=== PATIENT | male | born 1950 | race Two or more races ===

== ENCOUNTER 2016-04-05 06:45 | Emergency (ER) | payer OTHER ==
[2016-04-05] MEDS ORDERED: SODIUM CHLORIDE 1,000 ML IV ONE (07:10)
[2016-04-05 07:15] VITALS: TEMP 97.9; BMI 25.4
--- NOTE | 2016-04-05 07:47 | PDOC ---
History of Present Illness <Saulo Rosales - Last Filed: 04/05/16 09:54> - General History Source: Patient Exam Limitations: No Limitations - History of Present Illness Initial Comments: 04/05/16 07:52 The patient is a 65-year-old man, accompanied by , with a significant past medical history of hypertension, gastroesophageal reflux disease, chronic back pain, lumbar radiculopathy secondary to spondylolisthesis (recent laminectomy of L4-L5; L5-S1; and L5-S1 fusion on 03/23/2015) and depression who presents to the emergency department for further evaluation of left thigh pain. As per patient, he recently underwent a laminectomy that was performed by Dr. Linus Camacho at [facility] in [facility]. Patient states that prior surgery, he experienced chronic back pain that radiated down his left leg with associated weakness and numbness. He admits that post surgery, he experiences occasional intermittent back discomfort but reports improvement of his leg, as is ambulatory with a cane and is able to move his leg with great strength and without experiencing numbness or weakness. He reports having a normal post up appointment with Dr. Camacho, 5 days post surgery. However, three days ago, he started to experience atraumatic left lateral thigh pain that began as intermittent but now has remained constant. He reports that his pain is exacerbated with movements with a 10/10 in severity and despite compliance with Percocet, he reports no alleviation, thus presenting to the ER. He denies other bodily pain or injury. He denies chest pain, SOB, dizziness, lightheadedness, or palpitation. He denies fever, chills, cough, abdominal pain, nausea, vomiting, diarrhea, visual changes, neck pain, Allergies: None Known Past Surgical History: Neck surgery. Recent Laminectomy of L4-L5; L5-S1; and L5 -S1 fusion on 03/23/2015 Social History: No tobacco, ETOH and recreational drug use Surgeon: Dr. Linus Camacho <Lara Stapleton - Last Filed: 04/05/16 10:18> - General Chief Complaint: Pain, Acute Stated Complaint: PAIN Time Seen by Provider: 04/05/16 07:10 Past History - Past Medical History Anemia: No Asthma: No Cancer: No Cardiac Disorders: No CVA: No COPD: No CHF: No Dementia: No Diabetes: No GI Disorders: Yes (GERD, HH, DIVERTICULOSIS) Disorders: No HTN: Yes Hypercholesterolemia: No Liver Disease: No Seizures: No Thyroid Disease: No - Surgical History Appendectomy: No Cardiac Surgery: No Cholecystectomy: No Lung Surgery: No Neurologic Surgery: Yes (NECK SURGERY) Orthopedic Surgery: Yes (BACK SURGERY) - Immunization History Immunization Up to Date: Yes - Psycho/Social/Smoking Cessation Hx Anxiety: No Suicidal Ideation: No Smoking Status: No Smoking History: Unknown if ever smoked Have you smoked in the past 12 months: No Number of Cigarettes Smoked Daily: 0 If you are a former smoker, when did you quit?: 20 YRS Cigars Per Day: 0 Hx Alcohol Use: No Drug/Substance Use Hx: No Substance Use Type: None Hx Substance Use Treatment: No <Saulo Rosales - Last Filed: 04/05/16 09:54> <Lara Stapleton - Last Filed: 04/05/16 10:18> - Past Medical History Allergies/Adverse Reactions: Allergies Allergy/AdvReac Type Severity Reaction Status Date / Time No Known Allergies Allergy Verified 04/05/16 06:58 Home Medications: Ambulatory Orders Enalapril Maleate [Vasotec -] 5 mg PO DAILY 02/04/14 Sertraline HCl [Zoloft -] 50 mg PO DAILY 02/04/14 Cyclobenzaprine HCl [Flexeril] 5 mg PO DAILY PRN 06/19/14 Esomeprazole Magnesium [Nexium 24Hr] 22.3 mg PO DAILY 04/16/15 Review of Systems - Review of Systems Constitutional: No: Chills, Fever, Night Sweats Respiratory: No: Cough, Shortness of Breath Cardiac (ROS): No: Chest Pain Musculoskeletal: Yes: See HPI, Muscle Pain Integumentary: No: Symptoms Reported Neurological: No: Tingling, Weakness All Other Systems: Reviewed and Negative <Saulo Rosales - Last Filed: 04/05/16 09:54> *Physical Exam - Vital Signs Last Vital Signs Temp Pulse Resp BP Pulse Ox 97.9 F 85 18 161/99 100 04/05/16 06:58 04/05/16 06:58 04/05/16 06:58 04/05/16 06:58 04/05/16 06:58 <Saulo Roasles - Last Filed: 04/05/16 09:54> - Vital Signs Last Vital Signs Temp Pulse Resp BP Pulse Ox 97.9 F 85 18 161/99 100 04/05/16 06:58 04/05/16 06:58 04/05/16 06:58 04/05/16 06:58 04/05/16 06:58 - Physical Exam Comments: 04/05/16 07:52 GENERAL: The patient is awake, alert, and fully oriented, in no acute distress. HEAD: Normal with no signs of trauma. EYES: Pupils equal, round and reactive to light, extraocular movements intact, sclera anicteric, conjunctiva clear with no pallor. ENT: Ears normal, nares patent, oropharynx clear without exudates. Moist mucous membranes. NECK: Normal range of motion, supple without lymphadenopathy, JVD, or masses. LUNGS: Breath sounds equal, clear to auscultation bilaterally. No wheeze/ crackles. HEART: Regular rate and rhythm, normal S1 and S2 without murmur or rub. BACK: Well healed lumbar scar without redness, tenderness, induration and discharge. ABDOMEN: There is a left lower quadrant vertical incision that is well healed without swelling induration and discharge. Soft/nontender/nondistended. BS wnl. No guarding or rebound. No palpable masses. No hepatosplenomegaly. EXTREMITIES: Normal range of motion.There is some reproducible tenderness over the proximal femur laterally but no deformity or swelling. 5/5 motor strength of the hip, knees, ankles and toes. No edema. No clubbing or cyanosis. No cords , erythema. NEUROLOGICAL: Cranial nerves II through XII grossly intact. Normal speech. PSYCH: Normal mood, normal affect. SKIN: Warm, Dry, normal turgor, no rashes or lesions noted. <Lara Stapleton - Last Filed: 04/05/16 10:18> ED Treatment Course - LABORATORY CBC & Chemistry Diagram: 04/05/16 08:00 04/05/16 08:00 <Saulo Rosales - Last Filed: 04/05/16 09:54> - LABORATORY CBC & Chemistry Diagram: 04/05/16 08:00 04/05/16 08:00 - RADIOLOGY Radiograph Interpretation: 04/05/16 08:34 EXAM: RAD/HIP PELVIS-LEFT IMPRESSION: Status post laminectomy with pain X-ray of the pelvis and left hip, 3 views dated The alignment is satisfactory. Both hip joints appear intact. Metallic hardware is noted in included portion of the lower lumbar spine EXAM: US/DUPLEX VASCUL US-1 LEG IMPRESSION: Real time and doppler evaluation of the left lower extremity demonstrates the following: There is no evidence of deep venous thrombosis within the common, deep and superficial femoral veins, as well as the popliteal and posterior tibial veins. The greater saphenous vein is also patent. These veins are fully compressible, as well. <Lara Stapleton - Last Filed: 04/05/16 10:18> Medical Decision Making - Medical Decision Making 04/05/16 07:43 A portion of this note was documented by scribe services under my direction. I have reviewed the details of the note, within reason, and agree with the documentation with the following case summary and management plan written by me. 65-year-old male with history of lumbar radiculopathy secondary to spondylolisthesis, history of laminectomy now 13 days postop repair with repeat laminectomy of L4-L5 and L5-S1 lesions, was doing well postoperatively with improved left lower extremity strength and range of motion, had a normal postop visit on day 5, now comes in with 3 days of constant and sharp pain to his left thigh, without motor or sensory deficit. The Percocet he is taking postoperatively is not helping, he presents for evaluation. Afebrile. Generally well-appearing. Incision sites are clean/dry/intact He has some reproducible discomfort along the femur without findings consistent with trauma, full range of motion of all joints with full strength, neurovascular intact Musculoskeletal type left thigh pain in this 65-year-old male 13 days postop of lumbar spine surgery. No evidence of infectious process, no history of trauma to suggest fracture, no findings consistent with DVT, question recurrence of radiculopathy that this would be more reflective of an L2-L3 region. Check basic labs, hip x-ray Pain control [facility] 04/05/16 09:43 Labs are within normal limits, lipase 600 notably. Urinalysis clear. Hip/pelvis imaging and Doppler imaging shows no acute abnormalities. Case discussed with Dr. Camacho's assistant corporation counsel, who is very familiar with patient' s case and assisted with the procedure. Post-op thigh pain is extremely common and expected following the procedure the patient had, and in light of the negative workup no further imaging is needed and patient can be discharged on his prior pain meds. They will continue routine post-op f/u as she states she reviewed these symptoms with the patient on prior visit. Pt improved after pain meds here, remains NVI, agrees with d/c plan. 04/05/16 09:57 Regarding lipase, pt repeats he has no abd pain/n/v/f/c. He does have chronic gastritis, but denies any acute exacerbations. <Saulo Rosales - Last Filed: 04/05/16 09:54> - Medical Decision Making 04/05/16 09:36 A page was sent to patient's Surgeon, Dr. Linus Camacho at . Immediate connection. Case was discussed. <Lara Stapleton - Last Filed: 04/05/16 10:18> *DC/Admit/Observation/Transfer <Saulo Rosales - Last Filed: 04/05/16 09:54> - Attestations Scribe Attestion: 04/05/16 07:52 Documentation prepared by Lara Stapleton, acting as durable medical equipment repairer for Saulo Rosales MD. <Lara Stapleton - Last Filed: 04/05/16 10:18> Diagnosis at time of Disposition: Left thigh pain, Status post laminectomy - Discharge Dispostion Disposition: HOME Condition at time of disposition: Stable - Referrals Referrals: Linus Camacho [Non Staff, Medical] - - Patient Instructions Printed Discharge Instructions: DI for Laminectomy Additional Instructions: Activity as tolerated. Stay hydrated. Blood tests, an x-ray, and an ultrasound performed today showed no acute abnormalities. We discussed your case with Dr. Camacho, and thigh pain after your particular surgery is very common. Continue your medications as previously prescribed by your physician, including your pain medications. Your lipase level was slightly elevated today, since to have no symptoms of abdominal pain or vomiting, this should be repeated with your primary physician in the next few days. You should follow up with your primary doctor and Dr. Camacho as soon as possible regarding today's emergency department visit. Return to the emergency department for any new or concerning symptoms, particularly intolerable pain, swelling or discoloration, numbness or weakness, abdominal pain or vomiting or fever.
[2016-04-05 08:10] LABS: EOSINOPHIL 2.1 % (0-4.5); MCH 29.9 pg (25.7-33.7); MCHC 34.6 g/dl (32.0-35.9); MEAN CELL VOLUME 86.3 fl (80-96); MEAN PLT VOLUME 7.8 fl (7.5-11.1); NEUTROPHILS 59.9 % (42.8-82.8); PLATELET COUNT 725 K/MM3 (134-434); RDW 12.7 % (11.9-15.9); WHITE BLOOD COUNT 8.5 K/mm3 (4.0-10.0)
[2016-04-05 08:14] LABS: URINE APPEARANCE CLEAR; URINE BILIRUBIN NEGATIVE (NEGATIVE); URINE BLOOD NEGATIVE (NEGATIVE); URINE COLOR STRAW; URINE GLUCOSE (UA) NEGATIVE (NEGATIVE); URINE KETONE NEGATIVE (NEGATIVE); URINE LEUK ESTERASE NEGATIVE (NEGATIVE); URINE NITRITE NEGATIVE (NEGATIVE); URINE PROTEIN NEGATIVE (NEGATIVE); URINE UROBILINOGEN NEGATIVE E.U./dl (0.2-1.0)
[2016-04-05] MEDS ORDERED: morphine CARPU-JECT 4 MG/1 ML DISP.SYRIN IVPUSH ONE (08:33)
[2016-04-05] MEDS ORDERED: ONDANSETRON 4 MG/2 ML VIAL IVPUSH ONE (08:33)
[2016-04-05 08:35] LABS: INR 1.08 (0.82-1.09); PROTHROMBIN TIME (PATIENT) 11.9 SEC (9.98-11.88)
[2016-04-05] MEDS ORDERED: ONDANSETRON 4 MG/2 ML VIAL ONE (08:36)
[2016-04-05] MEDS ORDERED: morphine CARPU-JECT 4 MG/1 ML DISP.SYRIN ONE (08:36)
[2016-04-05 08:42] LABS: ANION GAP 7 (8-16); CALCIUM 9.2 mg/dL (8.5-10.1); CO2 26 mmol/L (21-32); CREATININE 0.8 mg/dL (0.7-1.3); GLUCOSE,RANDOM 111 mg/dL (74-106); SGOT/AST 38 U/L (15-37); SGPT/ALT 81 U/L (12-78)
[2016-04-05 08:47] LABS: ALK PHOS 95 U/L (45-117); BILIRUBIN,TOTAL 0.2 mg/dL (0.2-1.0); TOT PROT 6.9 g/dl (6.4-8.2)
[2016-04-05 10:16] VITALS: BP 135/78; PULSE 63
== END 2016-04-05 10:16 | disposition home or self-care (01) ==
LOC: JER 06:45
PROC: 3E0337Z Introduction of Electrolytic and Water Balance Substance into Peripheral Vein, Percutaneous Approach (ICD-10-PCS; principal; 2016-04-05)
PROC: 3E033NZ Introduction of Analgesics, Hypnotics, Sedatives into Peripheral Vein, Percutaneous Approach (ICD-10-PCS; 2016-04-05)
PROC: 3E033GC Introduction of Other Therapeutic Substance into Peripheral Vein, Percutaneous Approach (ICD-10-PCS; 2016-04-05)
DX: M79.652 Pain in left thigh (principal); M96.1 Postlaminectomy syndrome, not elsewhere classified; Z97.8 Presence of other specified devices; Y83.8 Other surgical procedures as the cause of abnormal reaction of the patient, or of later complication, without mention of misadventure at the time of the procedure; I10 Essential (primary) hypertension; K21.9 Gastro-esophageal reflux disease without esophagitis
CPT/HCPCS: 36415; 73523-TC; 80053; 81003; 83690; 85025; 85610; 86850; 86900; 86901; 93971-TC; 96361; 96374; 96375; 99282-25

== ENCOUNTER 2016-06-28 19:56 | Emergency (ER) | payer OTHER ==
[2016-06-28 20:33] VITALS: BP 134/82; PULSE 88; TEMP 100.1; BMI 26.1
[2016-06-28] MEDS ORDERED: MECLIZINE HCL 25 MG TABLET (FP) PO ONE (23:50)
--- NOTE | 2016-06-28 23:50 | PDOC ---
History of Present Illness - General History Source: Patient Exam Limitations: No Limitations - History of Present Illness Initial Comments: 06/29/16 00:27 The patient is a 65 year old male with a significant past medical history of hypertension, GERD, chronic back pain, cervical and lumbar fracture 20 years ago , lumbar radiculopathy secondary to spondylolisthesis (recent laminectomy of L4 -L5; L5-S1; and L5-S1 fusion on 03/23/2015) and depression who presents to the emergency department for lightheadedness. Patient reports sensation of the room spinning that usually lasts for less than 30 minutes and has been ongoing for 20 -30 days. Patient notes that he has not been taking anything to alleviate the symptoms. Patient states that today the sensation started at 1500 hour today and lasted all day. He reports fever and chills. Patient also reports cramping pain in shoulders, arms and legs. He denies abdominal pain, nausea, vomiting, diarrhea, visual changes, neck pain , chest pain, SOB, headache, numbness or tingling. No recent trauma, falls or LOC. Allergies: NKA Past Surgical History: Neck surgery. Laminectomy of L4-L5; L5-S1; and L5-S1 fusion on 03/23/2015 Social History: No tobacco, ETOH and recreational drug use Surgeon: Dr. Linus Camacho <Stephanie Solis - Last Filed: 06/29/16 00:27> <Owen Alfaro - Last Filed: 06/29/16 02:47> - General Chief Complaint: Lightheaded Stated Complaint: LIGHTHEADED/DIZZY Past History <Stephanie Solis - Last Filed: 06/29/16 00:27> - Past Medical History Anemia: No Asthma: No Cancer: No Cardiac Disorders: No CVA: No COPD: No CHF: No Dementia: No Diabetes: No GI Disorders: Yes (GERD, HH, DIVERTICULOSIS) Disorders: No HTN: Yes Hypercholesterolemia: No Liver Disease: No Seizures: No Thyroid Disease: No - Surgical History Appendectomy: No Cardiac Surgery: No Cholecystectomy: No Lung Surgery: No Neurologic Surgery: Yes (NECK SURGERY) Orthopedic Surgery: Yes (BACK SURGERY) - Immunization History Immunization Up to Date: Yes - Psycho/Social/Smoking Cessation Hx Anxiety: No Suicidal Ideation: No Smoking Status: No Smoking History: Unknown if ever smoked Have you smoked in the past 12 months: No Number of Cigarettes Smoked Daily: 0 If you are a former smoker, when did you quit?: 20 YRS Cigars Per Day: 0 Hx Alcohol Use: No Drug/Substance Use Hx: No Substance Use Type: None Hx Substance Use Treatment: No <DominicOwen talbot - Last Filed: 06/29/16 02:47> - Past Medical History Allergies/Adverse Reactions: Allergies Allergy/AdvReac Type Severity Reaction Status Date / Time No Known Allergies Allergy Verified 06/28/16 20:29 Home Medications: Ambulatory Orders Enalapril Maleate [Vasotec -] 5 mg PO DAILY 02/04/14 Sertraline HCl [Zoloft -] 50 mg PO DAILY 02/04/14 Esomeprazole Magnesium [Nexium 24Hr] 22.3 mg PO DAILY 04/16/15 Review of Systems - Review of Systems Able to Perform ROS?: Yes Comments:: 06/29/16 00:27 GENERAL/CONSTITUTIONAL: +fever. No chills. No weakness. HEAD, EYES, EARS, NOSE AND THROAT: No change in vision. No ear pain or discharge. No sore throat. CARDIOVASCULAR: No chest pain or shortness of breath. RESPIRATORY: No cough, wheezing, or hemoptysis. GASTROINTESTINAL: No nausea, vomiting, diarrhea or constipation. GENITOURINARY: No dysuria, frequency, or change in urination. MUSCULOSKELETAL: No joint or muscle swelling or pain. No neck or back pain. SKIN: No rash NEUROLOGIC: +lightheadedness. No headache, vertigo, loss of consciousness, or change in strength/sensation. ENDOCRINE: No increased thirst. No abnormal weight change. HEMATOLOGIC/LYMPHATIC: No anemia, easy bleeding, or history of blood clots. ALLERGIC/IMMUNOLOGIC: No hives or skin allergy. <Stephanie Solis - Last Filed: 06/29/16 00:27> *Physical Exam - Vital Signs Last Vital Signs Temp Pulse Resp BP Pulse Ox 100.1 F H 88 20 134/82 98 06/28/16 20:29 06/28/16 20:29 06/28/16 20:29 06/28/16 20:29 06/28/16 20:29 - Physical Exam Comments: 06/29/16 00:28 GENERAL: Awake, alert, and fully oriented, in no acute distress HEAD: No signs of trauma EYES: PERRLA, EOMI, sclera anicteric, conjunctiva clear ENT: Auricles normal inspection, hearing grossly normal, nares patent, oropharynx clear without exudates. Moist mucosa NECK: Normal ROM, supple, no lymphadenopathy, JVD, or masses LUNGS: Breath sounds equal, clear to auscultation bilaterally. No wheezes, and no crackles HEART: Regular rate and rhythm, normal S1 and S2, no murmurs, rubs or gallops ABDOMEN: Soft, nontender, normoactive bowel sounds. No guarding, no rebound. No masses EXTREMITIES: Normal range of motion, no edema. No clubbing or cyanosis. No cords, erythema, or tenderness NEUROLOGICAL: Cranial nerves II through XII grossly intact. Normal speech. No dysmetria SKIN: Warm, Dry, normal turgor, no rashes or lesions noted. <Stephanie Solis - Last Filed: 06/29/16 00:27> - Vital Signs Last Vital Signs Temp Pulse Resp BP Pulse Ox 100.1 F H 88 20 134/82 98 06/28/16 20:29 06/28/16 20:29 06/28/16 20:29 06/28/16 20:29 06/28/16 20:29 <Owen Alfaro - Last Filed: 06/29/16 02:47> ED Treatment Course - LABORATORY CBC & Chemistry Diagram: 06/28/16 23:58 06/28/16 23:58 - Medications Given in the ED: ED Medications Discontinued Medications Generic Name Dose Route Start Last Admin Trade Name Pushpa PRN Reason Stop Dose Admin Meclizine HCl 50 mg 06/28/16 23:50 06/29/16 00:09 Antivert - PO 06/28/16 23:51 50 mg ONCE ONE Administration <Stephanie Solis - Last Filed: 06/29/16 00:27> - LABORATORY CBC & Chemistry Diagram: 06/28/16 23:58 06/28/16 23:58 <Owen Alfaro - Last Filed: 06/29/16 02:47> Medical Decision Making - Medical Decision Making 06/29/16 02:45 This is a 65yo m with vertiginous symptoms for the last one month at least, on and off, with negative CT head by PMD. He has no focal neurologic findings and has not demonstrated any symptoms while in the ED. He has been given antivert for symptomatic control. Follow up with the PMD within the next 48 hours and has appointment with a neurologist for this week. I have encouraged the patient to follow up as scheduled. Given recent CT imaging, will hold at this time. EKG unremarkable and labs unremarkable. <Owen Alfaro - Last Filed: 06/29/16 02:47> *DC/Admit/Observation/Transfer - Attestations Scribe Attestion: 06/29/16 00:29 Documentation prepared by SINDY Jean, acting as medical doctor md for Owen Alfaro MD. <Stephanie Solis - Last Filed: 06/29/16 00:27> - Discharge Dispostion Admit: No Decision to Admit order Date/Time: 06/29/16 02:43 - Attestations Physician Attestion: 06/29/16 02:44 I, Dr. Owen Alfaro MD, attest that this document has been prepared under my direction and personally reviewed by me in its entirety. I further attest, that it accurately reflects all work, treatment, procedures and medical decision -making performed by me. <Owen Alfaro - Last Filed: 06/29/16 02:47> Diagnosis at time of Disposition: Vertigo, Viral syndrome - Discharge Dispostion Disposition: HOME Condition at time of disposition: Good - Referrals Referrals: STAFF,NOT ON [Primary Care Provider] - - Patient Instructions Printed Discharge Instructions: Vertigo Additional Instructions: Please follow up with your PMD as scheduled. If there is any change otherwise in your symptoms, please return immediately to the ED. Print Language: MONTSERRATIAN
[2016-06-29] MEDS ORDERED: MECLIZINE HCL 25 MG TABLET (FP) ONE (00:07)
[2016-06-29 00:55] LABS: MEAN CELL VOLUME 81.7 fl (80-96); WHITE BLOOD COUNT 12.5 K/mm3 (4.0-10.0)
[2016-06-29 00:56] LABS: BASOPHIL 0.5 % (0-2.0); EOSINOPHIL 0.5 % (0-4.5); MCH 27.6 pg (25.7-33.7); MCHC 33.8 g/dl (32.0-35.9); PLATELET COUNT 267 K/MM3 (134-434); RDW 14.4 % (11.9-15.9)
[2016-06-29 00:57] LABS: ALBUMIN 3.6 g/dl (3.4-5.0); ANION GAP 10 (8-16); BILIRUBIN,TOTAL 0.7 mg/dL (0.2-1.0); CALCIUM 8.6 mg/dL (8.5-10.1); CO2 26 mmol/L (21-32); CREATININE 0.9 mg/dL (0.7-1.3); GLUCOSE,RANDOM 90 mg/dL (74-106); SGOT/AST 17 U/L (15-37); SGPT/ALT 29 U/L (12-78); TOT PROT 7.3 g/dl (6.4-8.2)
[2016-06-29 00:59] LABS: ALK PHOS 71 U/L (45-117); TROPONIN I < 0.02 ng/ml (0.00-0.05)
[2016-06-29 02:03] LABS: URINE APPEARANCE CLEAR; URINE BILIRUBIN NEGATIVE (NEGATIVE); URINE COLOR YELLOW; URINE GLUCOSE (UA) NEGATIVE (NEGATIVE); URINE KETONE NEGATIVE (NEGATIVE)
[2016-06-29 02:04] LABS: URINE BLOOD NEGATIVE (NEGATIVE); URINE LEUK ESTERASE NEGATIVE (NEGATIVE); URINE NITRITE NEGATIVE (NEGATIVE); URINE PROTEIN NEGATIVE (NEGATIVE); URINE UROBILINOGEN 0.2 E.U/dl E.U./dl (0.2-1.0)
--- NOTE | 2016-06-29 12:44 | EKG ---
Test Reason : Blood Pressure : / mmHG Vent. Rate : 082 BPM Atrial Rate : 082 BPM P-R Int : 166 ms QRS Dur : 106 ms QT Int : 374 ms P-R-T Axes : 054 046 062 degrees QTc Int : 436 ms NORMAL SINUS RHYTHM NORMAL ECG WHEN COMPARED WITH ECG OF 16-APR-2015 18:44, QT HAS LENGTHENED CLINICAL CORRELATION IS RECOMMENDED Confirmed by TERI STRE[address], JOSE CARLOS ([id number]) on 06/29/2016 12:44:02 PM Referred By: Confirmed By:JOSE CARLOS WILLIAMSON MD
== END 2016-06-29 03:45 | disposition home or self-care (01) ==
LOC: JER 19:56
DX: B34.9 Viral infection, unspecified (principal); I10 Essential (primary) hypertension; M54.89 Other dorsalgia; G89.29 Other chronic pain; M54.16 Radiculopathy, lumbar region
CPT/HCPCS: 36415; 80053; 81003; 82550; 84484; 85025; 93005; 93010; 99282-25

== ENCOUNTER 2017-08-02 20:27 | Emergency (ER) | payer OTHER ==
[2017-08-02 20:41] VITALS: BMI 26.6
--- NOTE | 2017-08-02 20:43 | PDOC ---
Rapid Medical Evaluation Time Seen by Provider: 08/02/17 20:37 Medical Evaluation: Allergies Allergy/AdvReac Type Severity Reaction Status Date / Time No Known Allergies Allergy Verified 06/28/16 20:29 08/02/17 20:37 Pt presents with difficulty urinating s/p neck surgery earlier today. Pt. had catheter in place for the surgery. Removed around 2:30pm. Pt. states he is very uncomfortable Exam: Pt. anxious and appears uncomfortable. Ambulatory. No respiratory distress Orders: catheter, UA, UC Pt. to proceed to ED for further evaluation
--- NOTE | 2017-08-02 21:39 | PDOC ---
History of Present Illness - General Chief Complaint: Urinary Problem Stated Complaint: TROUBLE URINATING Time Seen by Provider: 08/02/17 20:37 History Source: Patient Exam Limitations: No Limitations - History of Present Illness Initial Comments: 08/02/17 21:37 This 66-year-old male without significant past medical history presents emergency Department with urinary retention status post spinal surgery today. Patient states that he had a goins intraoperative and was able to void only a little bit after having the Goins removed. Patient states she has not voided since that initial time and has progressively felt more "full" until now he a severe lower abdominal pain. Patient reports a general anesthesia first procedure earlier today. He denies any numbness or tingling, weakness, inability to move toes. Past History - Past Medical History Allergies/Adverse Reactions: Allergies Allergy/AdvReac Type Severity Reaction Status Date / Time No Known Allergies Allergy Verified 08/02/17 20:41 Home Medications: Ambulatory Orders Enalapril Maleate [Vasotec -] 5 mg PO DAILY 02/04/14 Sertraline HCl [Zoloft -] 50 mg PO DAILY 02/04/14 Esomeprazole Magnesium [Nexium 24Hr] 22.3 mg PO DAILY 04/16/15 Anemia: No Asthma: No Cancer: No Cardiac Disorders: No CVA: No COPD: No CHF: No Dementia: No Diabetes: No GI Disorders: Yes (GERD, HH, DIVERTICULOSIS) Disorders: No HTN: Yes Hypercholesterolemia: No Liver Disease: No Seizures: No Thyroid Disease: No - Surgical History Appendectomy: No Cardiac Surgery: No Cholecystectomy: No Lung Surgery: No Neurologic Surgery: Yes (NECK SURGERY) Orthopedic Surgery: Yes (BACK SURGERY) - Immunization History Immunization Up to Date: Yes - Suicide/Smoking/Psychosocial Hx Smoking Status: No Smoking History: Unknown if ever smoked Have you smoked in the past 12 months: No Number of Cigarettes Smoked Daily: 0 If you are a former smoker, when did you quit?: 20 YRS Cigars Per Day: 0 Hx Alcohol Use: No Drug/Substance Use Hx: No Substance Use Type: None Hx Substance Use Treatment: No Review of Systems - Review of Systems Able to Perform ROS?: Yes Is the patient limited Egyptian proficient: No Constitutional: No: Symptoms Reported HEENTM: No: Symptoms Reported Respiratory: No: Symptoms reported Cardiac (ROS): No: Symptoms Reported ABD/GI: No: Symptoms Reported : Yes: See HPI Musculoskeletal: No: Symptoms Reported Integumentary: No: Symptoms Reported Neurological: No: Symptoms reported Endocrine: No: Symptoms Reported Hematologic/Lymphatic: No: Symptoms Reported *Physical Exam - Vital Signs Last Vital Signs Temp Pulse Resp BP Pulse Ox 97.7 F 110 H 22 143/102 97 08/02/17 20:39 08/02/17 20:39 08/02/17 20:39 08/02/17 20:39 08/02/17 20:39 - Physical Exam General Appearance: Yes: Appropriately Dressed. No: Apparent Distress Respiratory/Chest: positive: Lungs Clear, Normal Breath Sounds. negative: Respiratory Distress, Accessory Muscle Use Cardiovascular: positive: Regular Rhythm, Regular Rate. negative: Murmur Gastrointestinal/Abdominal: positive: Normal Bowel Sounds, Soft, Other ( palpable bladder). negative: Tender Musculoskeletal: positive: Normal Inspection. negative: CVA Tenderness Neurologic: positive: spinning frame cleaner II-XII NML intact, Fully Oriented, Alert, Normal Mood/ Affect, Normal Response, Motor Strength 5/5, Finger to Nose. negative: Confused Moderate Sedation - Procedure Monitoring Vital Signs: Vital Signs Temp Pulse Resp BP Pulse Ox 97.7 F 110 H 22 143/102 97 08/02/17 20:39 08/02/17 20:39 08/02/17 20:39 08/02/17 20:39 08/02/17 20:39 Medical Decision Making - Medical Decision Making 08/02/17 21:38 A/P: 66-year-old male with urinary retention postop Tender to palpation the suprapubic area No focal neurologic deficits noted Goins catheter UA, urine culture, discharge *DC/Admit/Observation/Transfer Diagnosis at time of Disposition: Urinary retention - Discharge Dispostion Disposition: HOME Condition at time of disposition: Fair Decision to Admit order: No - Referrals - Patient Instructions Printed Discharge Instructions: DI for Urinary Retention in Men Additional Instructions: Make an appointment to follow up with her primary doctor within the next 3 days. Leave catheter in place until follow-up with your primary doctor or surgeon. Continue all previous postop discharge instructions. Return to emergency department for worsening pain, bloody drainage, any other concerns. Sam kassi olga para hacer un seguimiento con love mdico primario dentro de los pr ximos 3 drew. Deje el catter en love lugar hasta el seguimiento con love mdico de cabecera o cirujano. Contine con todas las instrucciones de descarga postoperatoria anteriores. Regrese al departamento de emergencias por empeoramiento del dolor, drenaje sanguinolento, cualquier otra preocupacin. Print Language: ARMENIAN - Post Discharge Activity
--- NOTE | 2017-08-02 22:14 | PDOC ---
*Physical Exam - Vital Signs Last Vital Signs Temp Pulse Resp BP Pulse Ox 97.7 F 110 H 22 143/102 97 08/02/17 20:39 08/02/17 20:39 08/02/17 20:39 08/02/17 20:39 08/02/17 20:39 Medical Decision Making - Medical Decision Making 08/02/17 22:14 agree with care from ELOINA Gastelum *DC/Admit/Observation/Transfer Diagnosis at time of Disposition: Urinary retention - Discharge Dispostion Disposition: HOME Condition at time of disposition: Fair - Referrals - Patient Instructions Printed Discharge Instructions: DI for Urinary Retention in Men Additional Instructions: Make an appointment to follow up with her primary doctor within the next 3 days. Leave catheter in place until follow-up with your primary doctor or surgeon. Continue all previous postop discharge instructions. Return to emergency department for worsening pain, bloody drainage, any other concerns. Sam kassi olga para hacer un seguimiento con love mdico primario dentro de los prximos 3 drew. Deje el catter en love lugar hasta el seguimiento con love mdico de cabecera o cirujano. Contine con todas las instrucciones de descarga postoperatoria anteriores. Regrese al departamento de emergencias por empeoramiento del dolor, drenaje sanguinolento, cualquier otra preocupacin. Print Language: WELSH - Post Discharge Activity
[2017-08-02 22:53] LABS: URINE APPEARANCE CLEAR; URINE BILIRUBIN NEGATIVE (<2.0 mg/dL); URINE BLOOD 1+ (NEGATIVE); URINE COLOR STRAW; URINE GLUCOSE (UA) NEGATIVE (NEGATIVE); URINE KETONE NEGATIVE (NEGATIVE); URINE LEUK ESTERASE NEGATIVE (NEGATIVE); URINE NITRITE NEGATIVE (NEGATIVE); URINE PROTEIN NEGATIVE (NEGATIVE); URINE UROBILINOGEN NEGATIVE mg/dL (0.2-1.0)
[2017-08-02 22:54] LABS: URINE MUCUS RARE
[2017-08-02 23:52] VITALS: BP 133/92; PULSE 88; TEMP 97.9
== END 2017-08-02 23:45 | disposition home or self-care (01) ==
LOC: JER 20:27
PROC: 0T9B70Z Drainage of Bladder with Drainage Device, Via Natural or Artificial Opening (ICD-10-PCS; principal; 2017-08-02)
DX: N99.89 Other postprocedural complications and disorders of genitourinary system (principal); R33.8 Other retention of urine; I10 Essential (primary) hypertension; Z87.19 Personal history of other diseases of the digestive system
CPT/HCPCS: 51702; 81003; 81015; 87086; 99284-25

== ENCOUNTER 2017-08-03 05:57 | Emergency (ER) | payer OTHER ==
--- NOTE | 2017-08-03 07:02 | PDOC ---
History of Present Illness - General Time Seen by Provider: 08/03/17 06:56 History Source: Patient Exam Limitations: No Limitations - History of Present Illness Travel History: No Initial Comments: 08/03/17 06:57 66-year-old male past medical history of spinal surgery performed on 08/02/17 presents to the emergency department yesterday with urinary retention status post procedure now with complaints that he would like his Ribera catheter removed. Patient was able to verbalize need for Ribera catheter at this time and the risks of having a Ribera catheter removed and reinserted should he need it again. He denies any fevers, chills, abdominal pain. Past History - Past Medical History Allergies/Adverse Reactions: Allergies Allergy/AdvReac Type Severity Reaction Status Date / Time No Known Allergies Allergy Verified 08/02/17 20:41 Home Medications: Ambulatory Orders Enalapril Maleate [Vasotec -] 5 mg PO DAILY 02/04/14 Sertraline HCl [Zoloft -] 50 mg PO DAILY 02/04/14 Esomeprazole Magnesium [Nexium 24Hr] 22.3 mg PO DAILY 04/16/15 Anemia: No Asthma: No Cancer: No Cardiac Disorders: No CVA: No COPD: No CHF: No Dementia: No Diabetes: No GI Disorders: Yes (GERD, HH, DIVERTICULOSIS) Disorders: No HTN: Yes Hypercholesterolemia: No Liver Disease: No Seizures: No Thyroid Disease: No - Surgical History Appendectomy: No Cardiac Surgery: No Cholecystectomy: No Lung Surgery: No Neurologic Surgery: Yes (NECK SURGERY) Orthopedic Surgery: Yes (BACK SURGERY) - Immunization History Immunization Up to Date: Yes - Suicide/Smoking/Psychosocial Hx Smoking Status: No Smoking History: Unknown if ever smoked Have you smoked in the past 12 months: No Number of Cigarettes Smoked Daily: 0 If you are a former smoker, when did you quit?: 20 YRS Cigars Per Day: 0 Hx Alcohol Use: No Drug/Substance Use Hx: No Substance Use Type: None Hx Substance Use Treatment: No Review of Systems - Review of Systems Able to Perform ROS?: Yes Is the patient limited Wolof proficient: No Constitutional: No: Symptoms Reported HEENTM: No: Symptoms Reported Respiratory: No: Symptoms reported Cardiac (ROS): No: Symptoms Reported ABD/GI: No: Symptoms Reported : Yes: See HPI Musculoskeletal: No: Symptoms Reported Integumentary: No: Symptoms Reported Neurological: No: Symptoms reported *Physical Exam - Physical Exam General Appearance: Yes: Appropriately Dressed. No: Apparent Distress Neck: positive: Trachea midline, Supple Respiratory/Chest: positive: Lungs Clear, Normal Breath Sounds. negative: Respiratory Distress, Accessory Muscle Use Cardiovascular: positive: Regular Rhythm, Regular Rate. negative: Murmur Gastrointestinal/Abdominal: positive: Normal Bowel Sounds, Soft. negative: Tender Musculoskeletal: positive: Normal Inspection. negative: CVA Tenderness Extremity: positive: Normal Inspection Integumentary: positive: Normal Color, Dry, Warm Neurologic: positive: Alert, Normal Response Medical Decision Making - Medical Decision Making 08/03/17 07:00 A/P: 66-year-old male with penile pain status post Ribera placement Abdomen soft nontender nondistended. Ribera draining clear yellow urine Patient educated to need for Ribera catheter and necessity for him to follow up his primary doctor to have it removed. Patient verbalizes understanding of discharge instructions. Patient is requesting larger bag to drain his urine as he felt a little vague as to small. *DC/Admit/Observation/Transfer Diagnosis at time of Disposition: Penile pain - Discharge Dispostion Disposition: HOME Condition at time of disposition: Fair Decision to Admit order: No - Referrals - Patient Instructions Additional Instructions: Make appointment with your primary doctor for reevaluation of need for catheter. Take as the prescribed pain medication as needed for pain. Return to emergency department for blood in her urine, severe pain, or any other concerns. - Post Discharge Activity
[2017-08-03 07:07] VITALS: BP 126/78; PULSE 82; TEMP 98.2; BMI 26.4
== END 2017-08-03 07:20 | disposition home or self-care (01) ==
LOC: JER 05:57
DX: N48.89 Other specified disorders of penis (principal); I10 Essential (primary) hypertension; K21.9 Gastro-esophageal reflux disease without esophagitis
CPT/HCPCS: 99281-25